=== PATIENT | male | born 1940 | race Caucasian/White ===

== ENCOUNTER 2019-03-13 17:33 | Inpatient (IN) | payer OTHER ==
[~2019-03-13] VITALS: Ht 180.3 cm; Wt 81.8 kg
[~2019-03-13 17:33] MED LIST: ALBU3IS INH; ALBU90OI6 INH; ALBU90OI61 INH; AMOX500 PO; ASPI325; ASPI325 PO; ASPI325EC PO; ASPI81CH; ASPI81EC PO; ATEN50 PO; ATOR10 PO; AZIT250 PO; BUDE6HFA INH; CEFP200; CEPH500 PO; CLARITIN10 MG PO; DOC250 PO; DOCU100 PO; FLUC100; FLUSAL2505; FLUSAL2505 IH; FLUSAL2505 INH; FLUT1DIS5 INH; GABA100 PO; GABA300 PO; GLIP10 PO; GLIP10ER PO; GUAI600T33 PO; HYDR1TAB94 PO; IPRA.06NI; LAVAP17G PO; LEVO750; LEVO750 PO; LISI20 PO; LISI5 PO; LORA10 PO; LORA10ER PO; LORPSEER12 PO; MELATONIN2.5 MG PO; Milk Of Ma400 MG/5 M PO; OMEP20ER PO; OXYC5; OXYC5 PO; Omeprazole20 M1; Omeprazole20 M1 PO; Oxycodone HCl5 M1 PO; PRED10 PO; PRED20 PO; PREG75 PO; PSEU30; Prednisone20 MG PO; SENN187 PO; SITA50T2 PO; SOMINEX; SPIRIVA RESPIMAT4 G1; TIOT18 INH; TOUJEO SOL300 UNIT/1; TOUJEO SOL300 UNIT/1 SQ; TRESIBA FL100 UNIT/1 SC; [UNRECOGNIZED DRUG - REMARK]
[2019-03-13] MEDS ORDERED: AZIT250 PO (18:09)
[2019-03-13 18:10] LABS: BASOPHILS ABSOLUTE AUTO 0.05 K/mm3 (0.00-0.23); BASOPHILS PERCENT AUTO 0 % (0-2); EOSINOPHILS ABSOLUTE AUTO 0.03 K/mm3 (0.00-0.68); EOSINOPHILS PERCENT AUTO 0 % (0-6); Hematocrit 43.8 % (37.0-53.0); Hemoglobin 13.9 g/dL (13.5-17.5); IMMATURE GRAN ABSOLUTE AUTO 0.14 K/mm3 (0.00-0.10); IMMATURE GRAN PERCENT AUTO 1 % (0-1); LYMPHOCYTES ABSOLUTE AUTO 1.66 K/mm3 (0.84-5.20); LYMPHOCYTES PERCENT AUTO 10 % (21-46); MONOCYTES ABSOLUTE AUTO 1.11 K/mm3 (0.16-1.47); MONOCYTES PERCENT AUTO 7 % (4-13); Mean Corpuscular HGB 30.7 pg (26.0-34.0); Mean Corpuscular HGB Conc 31.7 g/dL (31.5-36.5); Mean Corpuscular Volume 97 fL (80-100); Mean Platelet Volume 9.5 fL (9.1-12.4); NEUTROPHILS ABSOLUTE AUTO 13.65 K/mm3 (1.96-9.15); NEUTROPHILS PERCENT AUTO 82 % (41-73); Platelet Count 164 K/mm3 (150-400); RDW Standard Deviation 57.1 fL (35.1-46.3); Red Blood Cell Count 4.53 M/mm3 (4.30-5.90); White Blood Cell Count 16.64 K/mm3 (4.00-11.30)
[2019-03-13] MEDS ORDERED: TRESIBA FL100 UNIT/1 SC (18:10)
[2019-03-13 18:24] LABS: Alanine Aminotransfer (ALT/SGP 38 U/L (12-78); Albumin, Blood 2.7 g/dL (3.4-5.0); Albumin/Globulin Ratio 0.6 (0.8-1.8); Alk Phos 102 U/L (50-136); Anion Gap 9 mmol/L (6-16); Aspartate Aminotrans (AST/SGOT 23 U/L (12-37); Bilirubin, Total 0.4 mg/dL (0.1-1.0); Blood Urea Nitrogen 16 mg/dL (8-24); Bun/Creatinine Ratio 16.8 (12.0-20.0); CO2, Blood 21 mmol/L (21-32); Calcium, Blood 8.4 mg/dL (8.5-10.1); Chloride, Blood 106 mmol/L (98-108); Creatinine, Blood 0.95 mg/dL (0.60-1.20); Globulin, Blood 4.4 g/dL (2.2-4.0); Glomerular Filtration Rate >60 (60-); Glucose, Blood 220 mg/dL (70-99); Potassium, Blood 4.1 mmol/L (3.5-5.5); Sodium, Blood 136 mmol/L (136-145); Total Protein, Blood 7.1 g/dL (6.4-8.2)
[2019-03-13] MEDS ORDERED: SPIRIVA RESPIMAT4 GM PO (19:37)
[2019-03-13] MEDS ORDERED: NAPR220 PO (19:49)
--- NOTE | 2019-03-14 04:28 | NUR ---
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 AAOX4 AND INDEPENDENT IN THE ROOM. PT ADMITTED WITH ACUTE RESPIRATORY FAILURE R/T PNA AND HX OF COPD. PT WEARS 3L O2 VIA NC AT HOME BUT REQUIRES 5L AT THIS TIME; SATTING BETWEEN 92-95%. TREATED WITH IV ABX AND SOLU MEDROL. DENIES PAIN, N/V. LUNGS FAIRLY CLEAR BUT DIM IN BASES. VSS, WILL CONTINUE TO MONITOR.
[2019-03-14 05:44] LABS: BASOPHILS ABSOLUTE AUTO 0.02 K/mm3 (0.00-0.23); BASOPHILS PERCENT AUTO 0 % (0-2); EOSINOPHILS PERCENT AUTO 0 % (0-6); Hematocrit 42.2 % (37.0-53.0); Hemoglobin 13.5 g/dL (13.5-17.5); IMMATURE GRAN ABSOLUTE AUTO 0.11 K/mm3 (0.00-0.10); IMMATURE GRAN PERCENT AUTO 1 % (0-1); LYMPHOCYTES ABSOLUTE AUTO 0.96 K/mm3 (0.84-5.20); LYMPHOCYTES PERCENT AUTO 6 % (21-46); MONOCYTES ABSOLUTE AUTO 0.34 K/mm3 (0.16-1.47); MONOCYTES PERCENT AUTO 2 % (4-13); Mean Corpuscular HGB 30.3 pg (26.0-34.0); Mean Corpuscular Volume 95 fL (80-100); Mean Platelet Volume 10.2 fL (9.1-12.4); NEUTROPHILS ABSOLUTE AUTO 14.45 K/mm3 (1.96-9.15); NEUTROPHILS PERCENT AUTO 91 % (41-73); Platelet Count 161 K/mm3 (150-400); RDW Coefficient Variation 15.8 % (11.7-14.2); RDW Standard Deviation 54.9 fL (35.1-46.3); Red Blood Cell Count 4.46 M/mm3 (4.30-5.90); White Blood Cell Count 15.88 K/mm3 (4.00-11.30)
[2019-03-14 06:12] LABS: Anion Gap 8 mmol/L (6-16); Blood Urea Nitrogen 18 mg/dL (8-24); Bun/Creatinine Ratio 19.3 (12.0-20.0); CO2, Blood 24 mmol/L (21-32); Calcium, Blood 8.9 mg/dL (8.5-10.1); Chloride, Blood 107 mmol/L (98-108); Creatinine, Blood 0.93 mg/dL (0.60-1.20); Glomerular Filtration Rate >60 (60-); Glucose, Blood 242 mg/dL (70-99); Potassium, Blood 4.8 mmol/L (3.5-5.5); Sodium, Blood 139 mmol/L (136-145)
--- NOTE | 2019-03-14 08:56 | NUR ---
NOTIFIED DR. ESPINOZA PT C/O LOWER BACK PAIN AND PT REPORTS HE TAKES ASPIRIN AT HOME. DR. ESPINOZA SAID TO ORDER 1 LIDOCAINE PATCH DAILY AND 650MG PO TYLENOL Q6H PRN FOR PAIN. NO OTHER NEW ORDERS AT THIS TIME.
--- NOTE | 2019-03-14 09:00 | NUR ---
PT IS ALLERGIC TO TYLENOL. ATTEMPTING TO REACH DR. ESPINOZA FOR NEW ORDER FOR PAIN MANAGEMENT.
--- NOTE | 2019-03-14 09:04 | NUR ---
NOTIFIED DR. ESPINOZA PT IS ALLERGIC TO TYLENOL. DR. ESPINOZA SAID TO ORDER 400MG PO IBUPROFEN Q6H PRN. NO OTHER NEW ORDERS AT THIS TIME.
--- NOTE | 2019-03-14 10:50 | NUR ---
PT REPORTS HIS LOWER BACK PAIN IS STILL AN 8/10. OFFERED TO CALL THE DOCTOR TO ASK FOR STRONGER PAIN MEDICATION. PT REFUSED. PT REPORTS HE THINKS IT IS FROM LAYING IN BED FOR EXTENDED PERIOD OF TIME AND HE THINKS IT WILL GET BETTER ON ITS OWN WITH INCREASED MOVEMENT.
--- NOTE | 2019-03-14 10:59 | NUR ---
NOTIFIED DR. ESPINOZA PT REPORTS HE TAKES 3 MG OF MELATONIN AT HOME FOR SLEEP AND PT REPORTS HE HAS NOT SLEPT LAST COUPLE NIGHTS. DR. ESPINOZA SAID TO ORDER 3MG PO MELATONIN AT BEDTIME. DR. ESPINOZA SAID TO ORDER SPUTUM SAMPLE. NO OTHER NEW ORDERS AT THIS TIME.
--- NOTE | 2019-03-14 17:58 | NUR ---
SHIFT SUMMARY- PT C/O LOWER BACK PAIN. MEDS GIVEN PER EMAR. PT DENIES SOB. RESP E/U. 93% ON 4L O2 NC. SPUTUM CULTURE SENT. INDEPENDENT IN THE ROOM. NO OTHER SIGNIFICANT CHANGES THIS SHIFT.
--- NOTE | 2019-03-15 06:36 | NUR ---
VSS, AFEBRILE, A/O, INDEPENDENT, PT REMAINS IN GOOD SPIRITS, NO COMPLAINTS, PT SLEPT WELL OVERNOC, PT APPEARS TO BE TRIPODING WHILE AWAKE, PT DENIES DISTRESS. WILL REPORT TO ON-COMING SHIFT.
--- NOTE | 2019-03-15 17:03 | NUR ---
SHIFT SUMMARY- PT AXO X4. DENIES PAIN. DENIES SOB. RESP E/U AT REST. DYSPNEA UPON EXERTION. 93% ON 3L O2 NC. DENIES N/V. AFTERNOON BLOOD SUGAR 340. DR. ESPINOZA INCREASED PT'S INSULIN TO MEDIUM SLIDING SCALE. PT ON IV SOLUMEDROL. INDEPENDENT IN THE ROOM. NO OTHER SIGNIFICANT CHANGES THIS SHIFT.
--- NOTE | 2019-03-15 21:37 | NUR ---
RT INCREASED O2 FROM 3L TO 4L NC. REPORTS TO ADJUST BACK DOWN TO 3L PRN.
--- NOTE | 2019-03-16 03:01 | NUR ---
SHIFT SUMMARY PATIENT HAD NO ACUTE CHANGES OBSERVED DURING THE SHIFT. AXO X 3 AND INDEPENDENT IN THE ROOM. PIV REMAINS INTACT. SOLU-MEDROL GIVEN PER EMAR. IV ABX INFUSED. FAMILY PRESENT MID SHIFT. CBG 297. DENIES PAIN, SOB, AND N/V. RT INCREASES 02 TO 4L FROM 3L ON NC. VSS/AFEBRILE. CALL LIGHT IN REACH. BED IN LOWEST POSITION. WILL CONTINUE TO MONITOR UNTIL DAY SHIFT NURSE ASSUMES CARE.
--- NOTE | 2019-03-16 10:54 | NUR ---
CLARIFIED WITH DR. ESPINOZA PT'S ORDER FOR SPIRIVA ON THE PT'S DISCHARGE MED REC. DR. ESPINOZA SAID IT SHOULD BE 1 INH DAILY. NO OTHER NEW ORDERS AT THIS TIME.
[2019-03-16] MEDS ORDERED: TIOT18 INH (10:55)
[2019-03-16] MEDS ORDERED: LIDOCAINE PAIN1 EACH TOP (11:06)
[2019-03-16] MEDS ORDERED: PRED20 PO (11:10)
[2019-03-16] MEDS ORDERED: Florastor250 MG PO (11:10)
[2019-03-16] MEDS ORDERED: Augmentin 875-1 EACH PO (11:12)
[2019-03-16] MEDS ORDERED: ALBU3IS INH (11:13)
--- NOTE | 2019-03-16 13:40 | NUR ---
D/C INSTRUCTIONS PROVIDED AND EXPLAINED TO PT. IV REMOVED. MEDS FAXED TO PHARMACY. 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
== END 2019-03-16 13:38 | disposition home or self-care (01) | DRG 871 ==
LOC: ER 17:33 → MEDS 20:37 → ENPENDDIS 03-16 10:21 → MEDS 03-16 13:38
PROVIDERS: Emergency Medicine; ADMIT Hospitalist
DX: A41.9 Sepsis, unspecified organism (principal); J96.21 Acute and chronic respiratory failure with hypoxia; J18.1 Lobar pneumonia, unspecified organism; J44.1 Chronic obstructive pulmonary disease with (acute) exacerbation; J44.0 Chronic obstructive pulmonary disease with (acute) lower respiratory infection; K21.9 Gastro-esophageal reflux disease without esophagitis; E11.9 Type 2 diabetes mellitus without complications; G62.9 Polyneuropathy, unspecified; Z99.81 Dependence on supplemental oxygen; Z79.4 Long term (current) use of insulin; I10 Essential (primary) hypertension; Z86.12 Personal history of poliomyelitis; Z87.891 Personal history of nicotine dependence
CPT/HCPCS: 36415; 71046; 80048; 80053; 82947; 84145; 85025; 87070; 87077; 87186; 87205; 93005; 93010; 94640; 94760; 96365; 96375; 99285-25; A9270; J0696; J1650; J2920; J2930; J7050; J7512

== ENCOUNTER 2019-06-20 18:46 | Emergency (ER) | payer OTHER ==
[~2019-06-20] VITALS: Ht 177.8 cm; Wt 83.9 kg
[~2019-06-20 18:46] MED LIST changes: +Augmentin 875-1 EACH PO; +Florastor250 MG PO; +LIDOCAINE PAIN1 EACH TOP; +NAPR220 PO; +SPIRIVA RESPIMAT4 GM PO
[2019-06-20 19:20] LABS: BASOPHILS ABSOLUTE AUTO 0.07 K/mm3 (0.00-0.23); BASOPHILS PERCENT AUTO 1 % (0-2); EOSINOPHILS ABSOLUTE AUTO 0.18 K/mm3 (0.00-0.68); EOSINOPHILS PERCENT AUTO 2 % (0-6); Hematocrit 44.3 % (37.0-53.0); IMMATURE GRAN ABSOLUTE AUTO 0.03 K/mm3 (0.00-0.10); IMMATURE GRAN PERCENT AUTO 0 % (0-1); LYMPHOCYTES PERCENT AUTO 27 % (21-46); MONOCYTES ABSOLUTE AUTO 0.76 K/mm3 (0.16-1.47); MONOCYTES PERCENT AUTO 8 % (4-13); Mean Corpuscular HGB 30.2 pg (26.0-34.0); Mean Corpuscular HGB Conc 31.6 g/dL (31.5-36.5); Mean Corpuscular Volume 96 fL (80-100); Mean Platelet Volume 9.6 fL (9.1-12.4); NEUTROPHILS ABSOLUTE AUTO 6.31 K/mm3 (1.96-9.15); NEUTROPHILS PERCENT AUTO 63 % (41-73); Platelet Count 168 K/mm3 (150-400); RDW Coefficient Variation 14.2 % (11.7-14.2); Red Blood Cell Count 4.64 M/mm3 (4.30-5.90); White Blood Cell Count 10.05 K/mm3 (4.00-11.30)
[2019-06-20 19:41] LABS: Alanine Aminotransfer (ALT/SGP 27 U/L (12-78); Albumin, Blood 3.3 g/dL (3.4-5.0); Albumin/Globulin Ratio 0.8 (0.8-1.8); Alk Phos 112 U/L (50-136); Anion Gap 6 mmol/L (6-16); Aspartate Aminotrans (AST/SGOT 21 U/L (12-37); Bilirubin, Total 0.4 mg/dL (0.1-1.0); Blood Urea Nitrogen 18 mg/dL (8-24); CO2, Blood 26 mmol/L (21-32); Calcium, Blood 8.7 mg/dL (8.5-10.1); Chloride, Blood 107 mmol/L (98-108); Creatinine, Blood 1.06 mg/dL (0.60-1.20); Glomerular Filtration Rate >60 (60-); Glucose, Blood 201 mg/dL (70-99); Potassium, Blood 4.1 mmol/L (3.5-5.5); Sodium, Blood 139 mmol/L (136-145); Total Protein, Blood 7.3 g/dL (6.4-8.2)
[2019-06-20 20:56] LABS: Source, Urine Clean Catch
[2019-06-20 21:02] LABS: Bilirubin, Urine Neg (Neg); Blood, Urine 5+ (Neg); Glucose Qualitative, Urine 2+ (Neg); Ketones, Urine 1+ (Neg); Leukocyte Esterase, Urine 3+ (Neg); Nitrite, Urine Neg (Neg); Protein, Urine 3+ (Neg); Specific Gravity, Urine 1.015 (1.003-1.022); Urobilinogen, Urine 2+ (Normal)
[2019-06-20 21:08] LABS: Appearance, Urine Cloudy (Clear); Color, Urine Red (P-Yellow)
[2019-06-20 21:14] LABS: Bacteria Rare /hpf; Red Blood Cells, Urine TNTC /hpf (0-2); Squamous Epithelial Cells Not Seen /hpf (Few)
[2019-06-20] MEDS ORDERED: CEFD300 PO (21:35)
== END 2019-06-20 22:00 | disposition home or self-care (01) ==
LOC: ER 18:46
PROVIDERS: Emergency Medicine
DX: N39.0 Urinary tract infection, site not specified (principal); R31.9 Hematuria, unspecified; E11.9 Type 2 diabetes mellitus without complications; J44.9 Chronic obstructive pulmonary disease, unspecified; I10 Essential (primary) hypertension; Z88.6 Allergy status to analgesic agent; Z79.899 Other long term (current) drug therapy; Z79.52 Long term (current) use of systemic steroids; Z79.4 Long term (current) use of insulin; Z87.891 Personal history of nicotine dependence
CPT/HCPCS: 80053; 81001; 85025; 87077; 87086; 87186; 99283

== ENCOUNTER 2020-04-17 19:13 | Inpatient (IN) | payer OTHER ==
[~2020-04-17] VITALS: Ht 180.3 cm; Wt 87.2 kg
[~2020-04-17 19:13] MED LIST changes: +CEFD300 PO
[2020-04-17 19:32] LABS: BASOPHILS ABSOLUTE AUTO 0.09 K/mm3 (0.00-0.23); BASOPHILS PERCENT AUTO 0 % (0-2); EOSINOPHILS ABSOLUTE AUTO 0.09 K/mm3 (0.00-0.68); EOSINOPHILS PERCENT AUTO 0 % (0-6); Hematocrit 46.2 % (37.0-53.0); Hemoglobin 14.7 g/dL (13.5-17.5); IMMATURE GRAN ABSOLUTE AUTO 0.19 K/mm3 (0.00-0.10); IMMATURE GRAN PERCENT AUTO 1 % (0-1); LYMPHOCYTES ABSOLUTE AUTO 1.78 K/mm3 (0.84-5.20); LYMPHOCYTES PERCENT AUTO 7 % (21-46); MONOCYTES ABSOLUTE AUTO 1.36 K/mm3 (0.16-1.47); MONOCYTES PERCENT AUTO 6 % (4-13); Mean Corpuscular HGB 30.2 pg (26.0-34.0); Mean Corpuscular HGB Conc 31.8 g/dL (31.5-36.5); Mean Corpuscular Volume 95 fL (80-100); Mean Platelet Volume 9.2 fL (9.1-12.4); NEUTROPHILS ABSOLUTE AUTO 20.67 K/mm3 (1.96-9.15); NEUTROPHILS PERCENT AUTO 85 % (41-73); Platelet Count 236 K/mm3 (150-400); RDW Coefficient Variation 14.8 % (11.7-14.2); RDW Standard Deviation 52.6 fL (35.1-46.3); Red Blood Cell Count 4.86 M/mm3 (4.30-5.90); White Blood Cell Count 24.18 K/mm3 (4.00-11.30)
[2020-04-17 19:58] LABS: Alanine Aminotransfer (ALT/SGP 39 U/L (12-78); Albumin, Blood 3.1 g/dL (3.4-5.0); Albumin/Globulin Ratio 0.6 (0.8-1.8); Alk Phos 124 U/L (50-136); Anion Gap 6 mmol/L (6-16); Aspartate Aminotrans (AST/SGOT 20 U/L (12-37); Bilirubin, Total 0.7 mg/dL (0.1-1.0); Blood Urea Nitrogen 17 mg/dL (8-24); Bun/Creatinine Ratio 17.3 (12.0-20.0); CO2, Blood 28 mmol/L (21-32); Calcium, Blood 8.6 mg/dL (8.5-10.1); Chloride, Blood 106 mmol/L (98-108); Creatinine, Blood 0.99 mg/dL (0.60-1.20); Globulin, Blood 4.8 g/dL (2.2-4.0); Glomerular Filtration Rate >60 (60-); Glucose, Blood 192 mg/dL (70-99); Potassium, Blood 4.6 mmol/L (3.5-5.5); Sodium, Blood 140 mmol/L (136-145); Total Protein, Blood 7.9 g/dL (6.4-8.2); Troponin I <0.015 ng/mL (0.000-0.040)
[2020-04-17] MEDS ORDERED: SPIRIVA RESPIMAT4 GM INH (21:46)
[2020-04-18] MEDS ORDERED: MELA3 PO (00:35)
[2020-04-18 04:55] LABS: BASOPHILS ABSOLUTE AUTO 0.04 K/mm3 (0.00-0.23); BASOPHILS PERCENT AUTO 0 % (0-2); EOSINOPHILS PERCENT AUTO 0 % (0-6); Hematocrit 41.1 % (37.0-53.0); Hemoglobin 13.2 g/dL (13.5-17.5); IMMATURE GRAN ABSOLUTE AUTO 0.14 K/mm3 (0.00-0.10); IMMATURE GRAN PERCENT AUTO 1 % (0-1); LYMPHOCYTES ABSOLUTE AUTO 1.07 K/mm3 (0.84-5.20); LYMPHOCYTES PERCENT AUTO 6 % (21-46); MONOCYTES ABSOLUTE AUTO 0.36 K/mm3 (0.16-1.47); MONOCYTES PERCENT AUTO 2 % (4-13); Mean Corpuscular HGB 30.6 pg (26.0-34.0); Mean Corpuscular HGB Conc 32.1 g/dL (31.5-36.5); Mean Corpuscular Volume 95 fL (80-100); Mean Platelet Volume 9.5 fL (9.1-12.4); NEUTROPHILS PERCENT AUTO 91 % (41-73); Platelet Count 206 K/mm3 (150-400); RDW Coefficient Variation 14.6 % (11.7-14.2); RDW Standard Deviation 51.7 fL (35.1-46.3); Red Blood Cell Count 4.32 M/mm3 (4.30-5.90); White Blood Cell Count 18.11 K/mm3 (4.00-11.30)
[2020-04-18 05:10] LABS: Alanine Aminotransfer (ALT/SGP 32 U/L (12-78); Albumin, Blood 2.6 g/dL (3.4-5.0); Albumin/Globulin Ratio 0.6 (0.8-1.8); Alk Phos 95 U/L (50-136); Anion Gap 7 mmol/L (6-16); Aspartate Aminotrans (AST/SGOT 15 U/L (12-37); Bilirubin, Total 0.6 mg/dL (0.1-1.0); Blood Urea Nitrogen 14 mg/dL (8-24); Bun/Creatinine Ratio 16.8 (12.0-20.0); CO2, Blood 25 mmol/L (21-32); Chloride, Blood 110 mmol/L (98-108); Creatinine, Blood 0.83 mg/dL (0.60-1.20); Globulin, Blood 4.4 g/dL (2.2-4.0); Glomerular Filtration Rate >60 (60-); Glucose, Blood 210 mg/dL (70-99); Potassium, Blood 4.2 mmol/L (3.5-5.5); Sodium, Blood 142 mmol/L (136-145)
--- NOTE | 2020-04-18 06:37 | NUR ---
SHIFT SUMMARY PT WAS A NEW ADMIT DURING THE NIGHT, ARRIVING ON THE FLOOR AT 2330. HE IS 79 Y/O, ADMITTED FOR PNA AND SEPSIS, CURRENTLY ON R/O FOR COVID19. PT IS A&O X 4, AND REPORTS THAT HE HAS CHRONIC WEAKNESS AND NORMALLY USES A MECHANIZED WHEELCHAIR AT HOME. 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 PT DENIED ANY COMPLAINTS OF PAIN OR NAUSEA, BUT DID REPORT INCREASED SOB THOUGH RELIEVED FROM WHEN PT FIRST ARRIVED AT THE HOSPITAL. TELE MONITOR SHOWER NSR C PACS IN THE 80S. VITAL SIGNS STABLE. PT HAD A SECOND CRITICAL LACTIC AT 3.2, INCREASED FROM 2.5. REPORTED TO THE HOSPITALIST, DR GREEN. NO CHANGES IN ORDERS AT THIS TIME. PT RECEIVING CONTINUOUS NS @ 75 ML/HR. NO OTHER ACUTE CHANGES IN PT CONDITION NOTED SINCE ADMISSION. WILL CONTINUE TO MONITOR AND TREAT PER EMAR UNTIL HAND OFF TO DAY SHIFT RN.
--- NOTE | 2020-04-18 17:01 | NUR ---
SHIFT SUMMARY PATIENT TOLERATING HIS HOME LEVEL OF O2, LUNGS WHEEZEY, RT INVOLVED IN POC. HE IS ABLE TO MAKE HIS NEEDS KNOWN. MINIMAL ASSIST WITH BEDBATH. IN GOOD SPIRITS TODAY. TOLERATING ANTIBIOTICS. NEW DRESSING PLACED TO IV. TOLERATING SCDS. ALERT AND ORIENTED. NO ACUTE CHANGES TODAY.
[2020-04-19 05:12] LABS: BASOPHILS ABSOLUTE AUTO 0.08 K/mm3 (0.00-0.23); BASOPHILS PERCENT AUTO 1 % (0-2); EOSINOPHILS ABSOLUTE AUTO 0.24 K/mm3 (0.00-0.68); EOSINOPHILS PERCENT AUTO 2 % (0-6); Hematocrit 41.2 % (37.0-53.0); IMMATURE GRAN ABSOLUTE AUTO 0.06 K/mm3 (0.00-0.10); IMMATURE GRAN PERCENT AUTO 1 % (0-1); LYMPHOCYTES PERCENT AUTO 13 % (21-46); MONOCYTES ABSOLUTE AUTO 0.89 K/mm3 (0.16-1.47); MONOCYTES PERCENT AUTO 8 % (4-13); Mean Corpuscular HGB 30.6 pg (26.0-34.0); Mean Corpuscular HGB Conc 31.6 g/dL (31.5-36.5); Mean Corpuscular Volume 97 fL (80-100); Mean Platelet Volume 9.7 fL (9.1-12.4); NEUTROPHILS ABSOLUTE AUTO 8.18 K/mm3 (1.96-9.15); NEUTROPHILS PERCENT AUTO 75 % (41-73); Platelet Count 205 K/mm3 (150-400); RDW Coefficient Variation 14.9 % (11.7-14.2); RDW Standard Deviation 53.3 fL (35.1-46.3); Red Blood Cell Count 4.25 M/mm3 (4.30-5.90); White Blood Cell Count 10.85 K/mm3 (4.00-11.30)
[2020-04-19 05:32] LABS: Anion Gap 4 mmol/L (6-16); Blood Urea Nitrogen 19 mg/dL (8-24); Bun/Creatinine Ratio 20.4 (12.0-20.0); CO2, Blood 28 mmol/L (21-32); Calcium, Blood 8.2 mg/dL (8.5-10.1); Chloride, Blood 111 mmol/L (98-108); Creatinine, Blood 0.93 mg/dL (0.60-1.20); Glomerular Filtration Rate >60 (60-); Glucose, Blood 110 mg/dL (70-99); Potassium, Blood 4.2 mmol/L (3.5-5.5); Sodium, Blood 143 mmol/L (136-145)
--- NOTE | 2020-04-19 05:34 | NUR ---
SHIFT SUMMARY- PT. A&OX4, PLEASANT AND COOPERATIVE WITH CARE. R/O COVID-19. USES W/C @BASELINE. PT. DENIED ANY PAIN OR DISCOMFORT T/O THE NIGHT. APPEARED TO HAVE RESTED COMFORTABLY T/O THIS SHIFT. NO APPARENT DISTRESS NOTED. PT. ABLE TO USE URINAL W/O DIFFICULTY. ON 3.5L OF O2 VIA NC. PT. USES 3-4L AT BASELINE. VSS. IV FLUIDS INFUSING, PT. TOLERATING WELL. CALL LIGHT WITHIN REACH AND SIDE RAILS UP X2. WILL CONT TO MONITOR.
[2020-04-19] MEDS ORDERED: Florastor250 MG PO (11:29)
[2020-04-19] MEDS ORDERED: AZIT500 PO (11:29)
[2020-04-19] MEDS ORDERED: CEFD300 PO (11:30)
[2020-04-19] MEDS ORDERED: Duoneb 2.5-0.5 M3 ML INH (11:31)
--- NOTE | 2020-04-19 11:47 | NUR ---
PT DC HOME WITH SON ALL INSTRUCTIONS REVIEWED WITH THE PT WHO VERBALIZES AN UNDERSTANDING. PT REQUESTED TO SCHEDULE HIS OWN F/U APPT. MED REC FAXED TO PHARMACY ON FILE. IV REMOVED WITH NO ISSUE. ALL PERSONAL BELONGINGS SENT WITH PT. PT STABLE UPON DC AND WAS ASSISTED DOWN TO HIS SON'S CAR.
== END 2020-04-19 11:46 | disposition home or self-care (01) | DRG 871 ==
LOC: ER 19:13 → MEDS 23:11 → ENPENDDIS 04-19 11:12 → MEDS 04-19 11:46
PROVIDERS: Emergency Medicine; Internal Medicine; Nurse Practitioner Acute Care; ADMIT Internal Medicine
DX: A41.9 Sepsis, unspecified organism (principal); J18.9 Pneumonia, unspecified organism; J96.21 Acute and chronic respiratory failure with hypoxia; J44.1 Chronic obstructive pulmonary disease with (acute) exacerbation; R65.20 Severe sepsis without septic shock; K21.9 Gastro-esophageal reflux disease without esophagitis; E11.42 Type 2 diabetes mellitus with diabetic polyneuropathy; I10 Essential (primary) hypertension; Z99.81 Dependence on supplemental oxygen; Z20.828 Contact with and (suspected) exposure to other viral communicable diseases; Z79.84 Long term (current) use of oral hypoglycemic drugs; Z79.4 Long term (current) use of insulin; Z79.51 Long term (current) use of inhaled steroids; Z79.52 Long term (current) use of systemic steroids; Z79.899 Other long term (current) drug therapy; Z87.891 Personal history of nicotine dependence
CPT/HCPCS: 36415; 71046; 80048; 80053; 82947; 83605; 84484; 85025; 87070; 87077; 87186; 87205; 93005; 93010; 94640; 94760; 96365; 96366; 96375; 99285-25; A9270-GY; J0456; J0696; J1650; J7030; J7050; U0003

== ENCOUNTER 2020-10-31 11:25 | Inpatient (IN) | payer OTHER ==
[~2020-10-31] VITALS: Ht 177.8 cm; Wt 85.8 kg
[~2020-10-31 11:25] MED LIST changes: +AZIT500 PO; -FLUT1DIS5 INH; +MELA3 PO; -Omeprazole20 M1
[2020-10-31 11:46] LABS: BASOPHILS PERCENT AUTO 0 % (0-2); EOSINOPHILS ABSOLUTE AUTO 0.03 K/mm3 (0.00-0.68); EOSINOPHILS PERCENT AUTO 0 % (0-6); Hematocrit 50.3 % (37.0-53.0); Hemoglobin 15.7 g/dL (13.5-17.5); IMMATURE GRAN ABSOLUTE AUTO 0.13 K/mm3 (0.00-0.10); IMMATURE GRAN PERCENT AUTO 1 % (0-1); LYMPHOCYTES ABSOLUTE AUTO 1.26 K/mm3 (0.84-5.20); LYMPHOCYTES PERCENT AUTO 6 % (21-46); MONOCYTES ABSOLUTE AUTO 1.37 K/mm3 (0.16-1.47); MONOCYTES PERCENT AUTO 6 % (4-13); Mean Corpuscular HGB Conc 31.2 g/dL (31.5-36.5); Mean Corpuscular Volume 93 fL (80-100); Mean Platelet Volume 9.6 fL (9.1-12.4); NEUTROPHILS ABSOLUTE AUTO 19.39 K/mm3 (1.96-9.15); NEUTROPHILS PERCENT AUTO 87 % (41-73); Platelet Count 198 K/mm3 (150-400); RDW Coefficient Variation 15.3 % (11.7-14.2); RDW Standard Deviation 52.3 fL (35.1-46.3); Red Blood Cell Count 5.42 M/mm3 (4.30-5.90); White Blood Cell Count 22.28 K/mm3 (4.00-11.30)
[2020-10-31 11:54] LABS: Base Excess Venous -1.4 mmol/L; Bicarbonate Venous 21.9 mmol/L (24.0-30.0); PCO2 Venous 43.2 mmHg (38-42); PO2 Venous 27.4 mmHg (38-42); pH Blood Venous 7.36 (7.34-7.37)
[2020-10-31 12:04] LABS: Alanine Aminotransfer (ALT/SGP 26 U/L (12-78); Albumin, Blood 3.4 g/dL (3.4-5.0); Albumin/Globulin Ratio 0.8 (0.8-1.8); Alk Phos 100 U/L (50-136); Anion Gap 8 mmol/L (6-16); Aspartate Aminotrans (AST/SGOT 21 U/L (12-37); Bilirubin, Total 1.1 mg/dL (0.1-1.0); Blood Urea Nitrogen 17 mg/dL (8-24); Bun/Creatinine Ratio 13.9 (12.0-20.0); CO2, Blood 23 mmol/L (21-32); Calcium, Blood 9.2 mg/dL (8.5-10.1); Chloride, Blood 107 mmol/L (98-108); Creatinine, Blood 1.22 mg/dL (0.60-1.20); Globulin, Blood 4.5 g/dL (2.2-4.0); Glomerular Filtration Rate >60 (60-); Glucose, Blood 153 mg/dL (70-99); Potassium, Blood 4.6 mmol/L (3.5-5.5); Sodium, Blood 138 mmol/L (136-145); Total Protein, Blood 7.9 g/dL (6.4-8.2); Troponin I <0.015 ng/mL (0.000-0.040)
[2020-10-31] MEDS ORDERED: FLUT1DIS8 INH (12:46)
[2020-10-31] MEDS ORDERED: ATOR10 PO (12:47)
[2020-10-31] MEDS ORDERED: Omeprazole20 M1 PO (12:47)
[2020-10-31] MEDS ORDERED: PREG75 PO (12:47)
[2020-10-31] MEDS ORDERED: IPRAT-ALBUT 0.5-3 ML NEB (12:49)
[2020-10-31] MEDS ORDERED: TAMSULOSIN HCL0.4 M1 PO (12:50)
[2020-10-31] MEDS ORDERED: SPIRIVA RESPIMAT4 G3 INH (12:53)
[2020-10-31 13:02] LABS: Influenza A, PCR Negative (NEGATIVE); Influenza B, PCR Negative (NEGATIVE); Resp Syncytial Virus, PCR Negative (NEGATIVE); SARS-Cov-2 (COVID-19) PCR, MMC Negative (NEGATIVE)
[2020-10-31 23:14] LABS: Base Excess Venous -4.4 mmol/L; Bicarbonate Venous 21.7 mmol/L (24.0-30.0); PCO2 Venous 29.9 mmHg (38-42); PO2 Venous 75.2 mmHg (38-42); pH Blood Venous 7.43 (7.34-7.37)
[2020-11-01 00:28] LABS: BASOPHILS ABSOLUTE AUTO 0.06 K/mm3 (0.00-0.23); BASOPHILS PERCENT AUTO 0 % (0-2); EOSINOPHILS PERCENT AUTO 0 % (0-6); Hematocrit 45.2 % (37.0-53.0); Hemoglobin 14.2 g/dL (13.5-17.5); IMMATURE GRAN ABSOLUTE AUTO 0.19 K/mm3 (0.00-0.10); IMMATURE GRAN PERCENT AUTO 1 % (0-1); LYMPHOCYTES ABSOLUTE AUTO 1.26 K/mm3 (0.84-5.20); LYMPHOCYTES PERCENT AUTO 5 % (21-46); MONOCYTES ABSOLUTE AUTO 1.46 K/mm3 (0.16-1.47); MONOCYTES PERCENT AUTO 6 % (4-13); Mean Corpuscular HGB 29.2 pg (26.0-34.0); Mean Corpuscular HGB Conc 31.4 g/dL (31.5-36.5); Mean Corpuscular Volume 93 fL (80-100); Mean Platelet Volume 9.6 fL (9.1-12.4); NEUTROPHILS ABSOLUTE AUTO 20.71 K/mm3 (1.96-9.15); NEUTROPHILS PERCENT AUTO 87 % (41-73); Platelet Count 175 K/mm3 (150-400); RDW Coefficient Variation 15.4 % (11.7-14.2); RDW Standard Deviation 53.1 fL (35.1-46.3); Red Blood Cell Count 4.87 M/mm3 (4.30-5.90); White Blood Cell Count 23.68 K/mm3 (4.00-11.30)
[2020-11-01 00:43] LABS: Anion Gap 9 mmol/L (6-16); Blood Urea Nitrogen 20 mg/dL (8-24); Bun/Creatinine Ratio 16.8 (12.0-20.0); CO2, Blood 24 mmol/L (21-32); Calcium, Blood 8.9 mg/dL (8.5-10.1); Chloride, Blood 107 mmol/L (98-108); Creatinine, Blood 1.19 mg/dL (0.60-1.20); Glomerular Filtration Rate >60 (60-); Glucose, Blood 159 mg/dL (70-99); Potassium, Blood 4.4 mmol/L (3.5-5.5); Sodium, Blood 140 mmol/L (136-145)
[2020-11-03] MEDS ORDERED: CEFD300 PO (13:50)
[2020-11-03] MEDS ORDERED: PRED20 PO (13:51)
[2020-11-03] MEDS ORDERED: AZIT250 PO (13:52)
== END 2020-11-03 16:54 | disposition home health service (06) | DRG 871 ==
LOC: ER 11:25 → MEDS 17:10
PROVIDERS: Emergency Medicine; Family Medicine; Physician Assistant; ADMIT Hospitalist
PROC: 5A09357 Assistance with Respiratory Ventilation, Less than 24 Consecutive Hours, Continuous Positive Airway Pressure (ICD-10-PCS; principal; 2020-10-31)
DX: A41.9 Sepsis, unspecified organism (principal); J18.9 Pneumonia, unspecified organism; J96.21 Acute and chronic respiratory failure with hypoxia; E87.2 Acidosis; J44.1 Chronic obstructive pulmonary disease with (acute) exacerbation; J44.0 Chronic obstructive pulmonary disease with (acute) lower respiratory infection; R65.20 Severe sepsis without septic shock; E11.9 Type 2 diabetes mellitus without complications; G47.30 Sleep apnea, unspecified; I10 Essential (primary) hypertension; I25.10 Atherosclerotic heart disease of native coronary artery without angina pectoris; K21.9 Gastro-esophageal reflux disease without esophagitis; Z87.891 Personal history of nicotine dependence; Z99.81 Dependence on supplemental oxygen; Z86.12 Personal history of poliomyelitis; Z20.828 Contact with and (suspected) exposure to other viral communicable diseases
CPT/HCPCS: 0241U; 36415; 71045; 80048; 80053; 82803; 82947; 83605; 83880; 84145; 84484; 85025; 87040; 87070; 87205; 93005; 93010; 94640; 94660; 94664; 94762; 96365; 97110; 97162; 97165; 97530; 99285-25; A9270-GY; J0696; J1650; J2930; J7050; J7120; J7512